=== PATIENT | male | born 1945 | race Caucasian/White ===

== ENCOUNTER 2016-05-22 09:32 | Emergency (ER) | payer OTHER ==
[~2016-05-22] VITALS: Ht 180.3 cm; Wt 109.0 kg
[~2016-05-22 09:32] MED LIST: ADV10050 IH; ALBU8.5H3 INH; AMIO200T2 PO; ATOR40TA68 PO; DABI150C PO; DILT120C77 PO; DIVA250T4 PO; DIVA500T7 PO; DOCU-144 PO; FURO80TA78 PO; GLIP5TAB13 PO; HYDR-3498 PO; HYDR-762 PO; IBUP-1542 PO; LACT20SO2 PO; LISI-313 PO; LORA-441 PO; LUBI24CA7 PO; MAGN400O4 PO; POTA-57 PO; QUET200T4 PO; TRAM50TA2 PO; TRAZ150T65 PO; ZOLP5TAB PO
[2016-05-22 11:15] VITALS: Ht 180.3 cm; Wt 109.0 kg
[2016-05-22] MEDS ORDERED: HYDROCODONE/APAP (5/325) TAB PO ONE (11:30)
--- NOTE | 2016-05-22 13:09 | RADRPT ---
PROCEDURE: Left knee x-ray CLINICAL INDICATION: Trauma TECHNIQUE: AP, lateral and oblique views of the left knee were obtained. COMPARISON: August 08, 2015 FINDINGS: There is normal mineralization. No acute fracture or dislocation is seen. There are no significant degenerative changes. A small suprapatellar knee joint effusion is present. There is no significant soft tissue swelling. IMPRESSION: No fracture or dislocation. Small suprapatellar knee joint effusion is present. Meniscal/ligamentous injury is not excluded. Physician Hector Date Time Electronically viewed and signed by Sagar Swartz Physician on 05/22/2016 13:08 ML/
[2016-05-22] MEDS ORDERED: HYDR-902 PO (13:35)
--- NOTE | 2016-05-22 13:42 | ERD ---
ER Documentation Chief Complaint Date/Time DATE: 05/22/16 TIME: 13:39 Chief Complaint Fell and injured left knee. HPI This is a 70-year-old male who slipped outside on the wet pavement this morning twisting and landing on his left knee. Is complaining of some pain to the medial aspect of his left knee with some swelling. No injury to the skin. He did not fall and hit his head or have any other bodily injury. He is denying headache neck pain chest pain abdominal pain other extremity pain no numbness weakness. The pain is described as sharp and nonradiating worse with walking better with rest. He is able to bear weight and ambulate but with some pain. ROS All systems reviewed and are negative except as per history of present illness. Medications Home Meds Active Scripts Hydrocodone/Acetaminophen (Udell 10-325 Tablet) 1 Each Tablet, 1 TAB PO Q6H Y for PAIN, #20 TAB Prov:LYDIA MILLER DO 05/22/16 Ibuprofen* (Motrin*) 600 Mg Tab, 600 MG PO Q6H Y for PAIN AND OR ELEVATED TEMP, #30 TAB Prov:BALJINDER MCADAMS NP 08/08/15 Hydrocodone Bit-Acetaminophen* (Udell*) 5-325 Mg Tab, 1 TAB PO Q6 Y for PAIN, # 20 TAB Prov:BALJINDER MCADAMS NP 08/08/15 Albuterol Sulfate* (Proair HFA*) 8.5 Gm Hfa.aer.ad, 2 PUFF INH Q4H Y for WHEEZING AND SOB, #1 INHALER Prov:THERESA ALLEN MD 05/31/15 Reported Medications Zolpidem Tartrate* (Ambien*) 5 Mg Tablet, 5 MG PO QHS Y for INSOMNIA, #30 TAB 05/23/15 Lubiprostone* (Amitiza*) 24 Mcg Capsule, 24 MCG PO BID, #60 CAP 05/23/15 Diltiazem Hcl* (Cardizem CD*) 120 Mg Cap.sr.24h, 120 MG PO DAILY, #30 CAP 05/23/15 Quetiapine Fumarate* (Seroquel* XR) 200 Mg Tab.sr.24h, 200 MG PO QHS, #30 TAB 05/23/15 Lactulose* (Lactulose*) 20 Gm/30 Ml Solution, 20 GM PO Q6H Y for CONSTIPATION, ML 05/23/15 Hydrocodone Bit-Acetaminophen* (Udell*) 10-325 Mg Tablet, 1 TAB PO BID Y for PAIN, TAB 05/23/15 Atorvastatin* (Atorvastatin*) 40 Mg Tablet, 40 MG PO QHS, #30 TAB 05/23/15 Furosemide* (Lasix*) 80 Mg Tablet, 80 MG PO QAM, TAB 11/11/14 Tramadol HCl (Tramadol HCl) 50 Mg Tab, 50 MG PO BID, TAB 11/11/14 Docusate Sodium* (Colace*) 100 Mg Capsule, 100 MG PO BID, CAP 11/11/14 Trazodone Hcl* (Trazodone Hcl*) 150 Mg Tablet, 150 MG PO HS, TAB 11/11/14 Divalproex Sodium* (Divalproex Sodium*) 250 Mg Tablet.dr, 250 MG PO QAM, TAB 11/11/14 Lorazepam* (Ativan*) 0.5 Mg Tablet, 0.5 MG PO BID Y for ANXIETY, TAB 11/11/14 Divalproex Sodium* (Depakote*) 500 Mg Tablet.dr, 500 MG PO QHS, TAB 11/11/14 Magnesium Hydroxide* (Milk Of Magnesia*) 400 Mg/5 Ml Oral.susp, 400 MG PO DAILY Y 11/14/12 Potassium Chloride* (Klor-Con*) 20 Meq Tabsr, 20 MEQ PO BID 11/14/12 Glipizide* (Glipizide*) 5 Mg Tablet, 2.5 MG PO BID 11/14/12 Salmeterol Xinaf/Fluticasone* (Advair 100/50 Diskus*) 1 Inh Inha, 1 INH IH BID 11/14/12 Dabigatran Etexilate Mesylate* (Pradaxa*) 150 Mg Capsule, 150 MG PO BID 11/14/12 Amiodarone Hcl* (Amiodarone Hcl*) 200 Mg Tablet, 100 MG PO AM 11/14/12 Lisinopril* (Lisinopril*) 5 Mg Tablet, 1 TAB PO Q AM 07/18/11 Allergies Allergies: Coded Allergies: No Known Allergy (Unverified , 05/26/15) PMhx/Soc History of Surgery: Yes (Tonsilectomy, hernia repairs) Anesthesia Reaction: No Hx Neurological Disorder: No Hx Respiratory Disorders: Yes (SLEEP APNEA,COPD, SMOKER) Hx Cardiac Disorders: Yes (HTN, AFIB) Hx Psychiatric Problems: Yes (BIPOLAR) Hx Miscellaneous Medical Probl: Yes (COPD,actively smoking,htn,bipolar d/o, psychiatric d/o) Hx Alcohol Use: Yes (drinks wine daily on meal time) Hx Substance Use: No Hx Tobacco Use: No Smoking Status: Never smoker FmHx Family History: No coronary disease Physical Exam Vitals Vital Signs Date Time Temp Pulse Resp B/P Pulse Ox O2 Delivery O2 Flow Rate FiO2 05/22/16 11:15 97.1 64 16 123/60 92 Physical Exam Const: Well-developed, well-nourished Head: Atraumatic, normocephalic Eyes: Normal Conjunctiva, PERRLA, EOMI, normal sclera, no nystagmus ENT: Normal External Ears, Nose and Mouth, moist mucus membranes. Neck: Full range of motion. No meningismus, no lymphadenopathy. Resp: Clear to auscultation bilaterally, no wheezing, rhonchi, rales Cardio: Regular rate and rhythm, no murmurs, S1 S2 present Abd: Soft, non tender x 4, non distended. Normal bowel sounds, no guarding or rebound, no pulsitile abdominal masses or bruits Skin: No petechiae or rashes, no ecchymosis , no maculopapular rash Back: No midline or flank tenderness Ext: No cyanosis, or edema, FROM x 4, mild medial suprapatellar swelling of the left knee with some mild tenderness there is full range of motion but with some pain. No skin injury no ligamentous laxity neurovascularly intact x 4 Neur: Awake and alert, STR 5/5 x 4, sensation intact x 4, no focal findings, cerebellum intact Psych: Normal Mood and Affect Results 24 hrs Current Medications Medications (Trade) Dose Ordered Sig/José Miguel Route PRN Reason Start Time Stop Time Status Last Admin Dose Admin Acetaminophen/ Hydrocodone Bitart (Udell (5/325)) 2 tab ONCE ONCE PO 05/22/16 11:30 05/22/16 11:31 DC 05/22/16 11:30 Procedures/MDM PROCEDURE: Left knee x-ray CLINICAL INDICATION: Trauma TECHNIQUE: AP, lateral and oblique views of the left knee were obtained. COMPARISON: August 08, 2015 FINDINGS: There is normal mineralization. No acute fracture or dislocation is seen. There are no significant degenerative changes. A small suprapatellar knee joint effusion is present. There is no significant soft tissue swelling. IMPRESSION: No fracture or dislocation. Small suprapatellar knee joint effusion is present. Meniscal/ligamentous injury is not excluded. Sagar Swartz Physician Date Time Electronically viewed and signed by Sagar Swartz Physician on 05/22/2016 13 :08 ML/ CC: LYDIA MILLER DO Patient was given Chi wrap and crutches. I told the patient that he needs an MRI of his pain is persistent after 2 weeks Departure Diagnosis: Primary Impression: Sprain, knee Encounter type: initial encounter Involved ligament of knee: unspecified ligament Laterality: left Qualified Code: S83.92XA - Sprain of left knee, unspecified ligament, initial encounter Condition: Stable Patient Instructions: Knee Sprain LYDIA MILLER DO May 22, 2016 13:41
[2016-05-22 14:21] VITALS: BP 135/81; PULSE 69; RESP 20; TEMP 97.2
== END 2016-05-22 15:09 | disposition home or self-care (01) ==
LOC: E/R 09:32
DX: S83.92XA Sprain of unspecified site of left knee, initial encounter (principal); J44.9 Chronic obstructive pulmonary disease, unspecified; I12.9 Hypertensive chronic kidney disease with stage 1 through stage 4 chronic kidney disease, or unspecified chronic kidney disease; N18.9 Chronic kidney disease, unspecified; F17.210 Nicotine dependence, cigarettes, uncomplicated; E11.9 Type 2 diabetes mellitus without complications; X50.1XXA Overexertion from prolonged static or awkward postures, initial encounter; Y92.9 Unspecified place or not applicable; Z79.84 Long term (current) use of oral hypoglycemic drugs
CPT/HCPCS: 73562